=== PATIENT | male | born 1970 | race African-American/Black ===

== ENCOUNTER 2017-06-02 14:13 | Emergency (ER) | payer MEDICAID ==
[~2017-06-02] VITALS: Ht 185.4 cm; Wt 93.0 kg
[2017-06-02 14:42] VITALS: BP 147/108
[2017-06-02] MEDS ORDERED: UNKNOWN BP MED (14:46)
== END 2017-06-02 20:00 | disposition left against medical advice (07) ==
LOC: ER 19:58
DX: R22.9 Localized swelling, mass and lump, unspecified (principal); Z53.21 Procedure and treatment not carried out due to patient leaving prior to being seen by health care provider

== ENCOUNTER 2022-01-17 14:05 | Emergency (ER) | payer MEDICAID ==
[~2022-01-17] VITALS: Ht 180.3 cm; Wt 130.0 kg
[~2022-01-17 14:05] MED LIST: UNKNOWN BP MED
[2022-01-17 14:20] VITALS: BP 144/81
[2022-01-17] MEDS ORDERED: AMLO5TAB88 MT (15:31)
[2022-01-17] MEDS ORDERED: HYDR25TA MT (15:31)
[2022-01-17] MEDS ORDERED: LOSA50TA41 MT (15:31)
[2022-01-17] MEDS ORDERED: LEVA15HF6 IH (15:31)
[2022-01-17] MEDS ORDERED: ATOR40TA70 MT (15:31)
[2022-01-17] MEDS ORDERED: ASPI-1406 MT (15:31)
== END 2022-01-17 16:50 | disposition home or self-care (01) ==
LOC: ER 14:05
DX: Z76.0 Encounter for issue of repeat prescription (principal); I10 Essential (primary) hypertension; E78.5 Hyperlipidemia, unspecified; Z88.0 Allergy status to penicillin; Z79.899 Other long term (current) drug therapy; Z86.73 Personal history of transient ischemic attack (TIA), and cerebral infarction without residual deficits
CPT/HCPCS: 99283

== ENCOUNTER 2022-03-05 12:33 | Emergency (ER) | payer MEDICAID, OTHER ==
[~2022-03-05] VITALS: Ht 172.7 cm; Wt 82.0 kg
[~2022-03-05 12:33] MED LIST changes: +AMLO5TAB88 MT; +ASPI-1406 MT; +ATOR40TA70 MT; +HYDR25TA MT; +LEVA15HF6 IH; +LOSA50TA41 MT
[2022-03-05 12:39] VITALS: BP 133/92
[2022-03-05] MEDS ORDERED: ASPI-1406 MT (13:33)
[2022-03-05] MEDS ORDERED: ATOR40TA70 MT (13:33)
[2022-03-05] MEDS ORDERED: LOSA50TA41 MT (13:33)
[2022-03-05] MEDS ORDERED: HYDR25TA MT (13:33)
== END 2022-03-05 13:47 | disposition home or self-care (01) ==
LOC: ER 12:33
DX: Z76.0 Encounter for issue of repeat prescription (principal); I10 Essential (primary) hypertension; E78.00 Pure hypercholesterolemia, unspecified; M19.90 Unspecified osteoarthritis, unspecified site; G47.33 Obstructive sleep apnea (adult) (pediatric); Z88.0 Allergy status to penicillin
CPT/HCPCS: 99283

== ENCOUNTER 2022-04-11 12:09 | Emergency (ER) | payer OTHER ==
[~2022-04-11] VITALS: Ht 185.4 cm; Wt 122.0 kg
[2022-04-11 12:45] VITALS: BP 130/82
== END 2022-04-11 23:05 | disposition left against medical advice (07) ==
LOC: ER 12:09
DX: Z53.21 Procedure and treatment not carried out due to patient leaving prior to being seen by health care provider (principal)

== ENCOUNTER 2022-06-12 13:46 | Emergency (ER) | payer OTHER ==
[~2022-06-12] VITALS: Ht 177.8 cm; Wt 107.0 kg
[2022-06-12] MEDS ORDERED: KETOROLAC 60MG/2ML VIAL IM ONE (17:15)
[2022-06-12] MEDS ORDERED: INDO-13 MT (17:17)
[2022-06-12] MEDS ORDERED: COLC0.6C3 PO (17:17)
[2022-06-12 17:32] VITALS: BP 129/74
== END 2022-06-12 18:58 | disposition home or self-care (01) ==
LOC: ER 13:46
DX: M79.671 Pain in right foot (principal); M19.071 Primary osteoarthritis, right ankle and foot; I10 Essential (primary) hypertension; E78.00 Pure hypercholesterolemia, unspecified; M10.9 Gout, unspecified; Z88.6 Allergy status to analgesic agent
CPT/HCPCS: 73630; 96372; 99283; J1885

== ENCOUNTER 2022-11-23 06:12 | Emergency (ER) | payer MEDICAID, OTHER ==
[~2022-11-23] VITALS: Ht 182.9 cm; Wt 120.0 kg
[~2022-11-23 06:12] MED LIST changes: +COLC0.6C3 PO; +INDO-13 MT
[2022-11-23 06:30] VITALS: BP 148/90
[2022-11-23] MEDS ORDERED: ONDANSETRON 4MG ODT PO ONE (07:00)
[2022-11-23] MEDS ORDERED: HYDROCODONE/ACETAMINOPHEN 10/325MG TABLET PO ONE (07:00)
[2022-11-23] MEDS ORDERED: KETOROLAC 60MG/2ML VIAL IM ONE (07:00)
[2022-11-23] MEDS ORDERED: HYDR-4001 MT (08:43)
[2022-11-23] MEDS ORDERED: IBUP-2030 MT (08:43)
== END 2022-11-23 09:00 | disposition home or self-care (01) ==
LOC: ER 06:12
DX: M10.9 Gout, unspecified (principal); I10 Essential (primary) hypertension; Z79.899 Other long term (current) drug therapy; Z88.0 Allergy status to penicillin
CPT/HCPCS: 73630; 96372; 99283; J1885; Q0162